=== PATIENT | female | born 1995 | race Caucasian/White ===

== ENCOUNTER 2021-03-31 09:19 | Inpatient (IN) | payer MEDICAID, OTHER ==
[~2021-03-31] VITALS: Ht 167.6 cm; Wt 81.6 kg
[2021-03-31] MEDS ORDERED: BACITRACIN ZINC OINT UDPKT TOP ONE (11:15)
[2021-03-31] MEDS ORDERED: LIDOCAINE HCL/PF 1% 10 MG/ML 5ML VIAL INFIL ONE (11:15)
[2021-03-31] MEDS ORDERED: KETOROLAC 15MG/ML VIAL IV ONE (11:15)
[2021-03-31] MEDS ORDERED: SODIUM CHLORIDE 0.9% 1000ML BAG (SEPSIS BOLUS) IV ONE (11:15)
[2021-03-31] MEDS ORDERED: VANCOMYCIN 1 G PREMIX 200 ML IV ONE (11:15)
[2021-03-31] MEDS ORDERED: PIPERACILLIN/TAZ 3.375G PREMIX 50 ML IV ONE (11:15)
[2021-03-31] MEDS ORDERED: LIDOCAINE HCL/EPINEPHRINE 1%-EPI 1:100,000 20 ML VIAL INFIL ONE (11:15)
[2021-03-31 12:02] LABS: CHLORIDE 105 mEq/L (98-107)
[2021-03-31 12:12] LABS: HCG SCREEN NEGATIVE
[2021-03-31 12:13] LABS: HEMATOCRIT. 42.6 % (36.0-48.0); HEMOGLOBIN. 14.1 g/dL (12.0-16.0); MEAN CORPUSCULAR HEMOGLOBIN 29.6 pg (28.0-32.0); MEAN CORPUSCULAR VOLUME 89.6 fL (81.0-99.0); MEAN PLATELET VOLUME 8.8 fl (7.4-10.4); PLATELET 364 x1000/uL (130-400); RED BLOOD CELL COUNT 4.76 mill/uL (4.2-5.4)
[2021-03-31] MEDS ORDERED: MORPHINE SULFATE 4 MG/ML CPJ (NOT FOR IM USE) IV STA (12:35)
[2021-03-31] MEDS ORDERED: ONDANSETRON HCL 4MG/2ML INJ IV STA (12:35)
[2021-03-31 13:00] LABS: CLARITY URINE TURBID (CLEAR); KETONES URINE 1+ (NEGATIVE); LEUKOCYTE ESTERASE URINE 2+ (NEGATIVE); NITRITE URINE POSITIVE (NEGATIVE); OCCULT BLOOD URINE NEGATIVE (NEGATIVE); PH URINE 5.5 (4.5-8.0); PROTEIN URINE 2+ (NEGATIVE); SPECIFIC GRAVITY URINE 1.035 (1.005-1.030)
[2021-03-31 13:03] LABS: COLOR URINE DARK YELLOW (YELLOW)
[2021-03-31 13:28] LABS: PLATELET ESTIMATE NORMAL
[2021-03-31] MEDS ORDERED: IOHEXOL-300 100 ML BOTTLE ONE (14:31)
[2021-03-31] MEDS ORDERED: DIPHENHYDRAMINE 50MG/ML VIAL IV PRN (16:30)
[2021-03-31] MEDS ORDERED: PIPERACILLIN/TAZOBACTAM 3.375 G in DEXTROSE 5% WATER 50 ML IV SCH (16:30)
[2021-03-31] MEDS ORDERED: IPRATROPIUM/ALBUTEROL 0.5-3(2.5)MG/3ML NEB HHN PRN (16:30)
[2021-03-31] MEDS ORDERED: CLONIDINE 0.1MG TABLET PO PRN (16:30)
[2021-03-31] MEDS ORDERED: NALOXONE HCL 0.4MG/ML VIAL IV PRN (16:45)
[2021-03-31] MEDS ORDERED: POTASSIUM CHLORIDE INJ 40 MEQ in DEXT 5% WATER 500 ML IV NR (18:30)
[2021-03-31] MEDS: MORPHINE SULFATE 2 MG/ML CPJ (NOT FOR IM USE) IV PRN ×2 (19:05→23:11)
[2021-03-31 21:00] VITALS: BP_SYST 111; BP_DIAS 44; BP_DIAS 48
[2021-03-31] MEDS: VANCOMYCIN 750 MG PREMIX 150 ML IV SCH (21:54)
[2021-03-31] MEDS: PIPERACILLIN/TAZOBACTAM 3.375G in DEXT 5% WATER 50ML IV SCH (21:54)
[2021-03-31] MEDS: ACETAMINOPHEN 325MG TABLET PO PRN (21:54)
[2021-03-31] MEDS: SODIUM CHLORIDE 0.9% 1,000 ML IV SCH (21:55)
[2021-04-01] VITALS: BP 102/46
[2021-04-01] MEDS: ACETAMINOPHEN 325MG TABLET PO PRN ×2 (02:01→14:33)
[2021-04-01 04:00] VITALS: BP 100/47
[2021-04-01] MEDS: SODIUM CHLORIDE 0.9% 1,000 ML IV SCH ×2 (05:00→18:23)
[2021-04-01] MEDS: MORPHINE SULFATE 2 MG/ML CPJ (NOT FOR IM USE) IV PRN ×4 (05:26→23:07)
[2021-04-01] MEDS: PIPERACILLIN/TAZOBACTAM 3.375G in DEXT 5% WATER 50ML IV SCH ×3 (05:42→21:14)
[2021-04-01] MEDS: VANCOMYCIN 750 MG PREMIX 150 ML IV SCH ×3 (05:42→21:14)
[2021-04-01 06:45] LABS: HEMATOCRIT. 33.5 % (36.0-48.0); HEMOGLOBIN. 11.4 g/dL (12.0-16.0); MEAN CORPUSCULAR HEMOGLOBIN 30.5 pg (28.0-32.0); MEAN CORPUSCULAR VOLUME 89.3 fL (81.0-99.0); MEAN PLATELET VOLUME 8.5 fl (7.4-10.4); PLATELET 303 x1000/uL (130-400); RED BLOOD CELL COUNT 3.75 mill/uL (4.2-5.4); RED CELL DISTRIBUTION WIDTH 13.9 % (11.6-14.6)
[2021-04-01 06:56] LABS: CHLORIDE 109 mEq/L (98-107)
[2021-04-01 07:03] LABS: LDL CHOLESTEROL 34 mg/dL (5-100)
[2021-04-01 07:04] LABS: HDL CHOLESTEROL 16 mg/dL (40-59)
[2021-04-01 08:00] VITALS: BP 112/57
[2021-04-01] MEDS ORDERED: POTASSIUM CHLORIDE INJ 40 MEQ in DEXT 5% WATER 250 ML IV SCH (11:00)
[2021-04-01 12:00] VITALS: BP 115/61
[2021-04-01 16:00] VITALS: BP 109/58
[2021-04-01 19:06] LABS: PLATELET ESTIMATE NORMAL
[2021-04-01 20:00] VITALS: BP 120/64
[2021-04-02] VITALS: BP 146/74
[2021-04-02] MEDS: ACETAMINOPHEN 325MG TABLET PO PRN ×2 (01:51→17:01)
[2021-04-02 04:00] VITALS: BP 120/76
[2021-04-02] MEDS: PIPERACILLIN/TAZOBACTAM 3.375G in DEXT 5% WATER 50ML IV SCH ×3 (05:27→21:17)
[2021-04-02] MEDS: VANCOMYCIN 750 MG PREMIX 150 ML IV SCH ×2 (05:27→13:07)
[2021-04-02] MEDS: MORPHINE SULFATE 2 MG/ML CPJ (NOT FOR IM USE) IV PRN ×3 (05:28→21:18)
[2021-04-02] MEDS: SODIUM CHLORIDE 0.9% 1,000 ML IV SCH ×2 (06:00→18:30)
[2021-04-02 06:57] LABS: BASOPHILS % 0.2 % (0.0-2.0); EOSINOPHILS % 1.1 % (0.0-5.0); HEMATOCRIT. 29.6 % (36.0-48.0); LYMPHOCYTES % 7.4 % (20.0-50.0); MEAN CORPUSCULAR HEMOGLOBIN 30.7 pg (28.0-32.0); MEAN CORPUSCULAR VOLUME 90.6 fL (81.0-99.0); MEAN PLATELET VOLUME 8.4 fl (7.4-10.4); MONOCYTES % 6.7 % (2.0-8.0); NEUTROPHILS % 84.6 % (40.0-76.0); PLATELET 281 x1000/uL (130-400); RED BLOOD CELL COUNT 3.26 mill/uL (4.2-5.4); RED CELL DISTRIBUTION WIDTH 14.6 % (11.6-14.6)
[2021-04-02 08:00] VITALS: BP 129/77
[2021-04-02 12:00] VITALS: BP 121/75
[2021-04-02 12:50] LABS: CHLORIDE 108 mEq/L (98-107)
[2021-04-02 16:00] VITALS: BP 124/71
[2021-04-02] MEDS: VANCOMYCIN 1 G PREMIX 200 ML IV SCH (18:17)
[2021-04-02 20:00] VITALS: BP 124/80
[2021-04-03] VITALS: BP 133/71
[2021-04-03] MEDS: VANCOMYCIN 1 G PREMIX 200 ML IV SCH ×3 (02:23→17:00)
[2021-04-03] MEDS: ACETAMINOPHEN 325MG TABLET PO PRN ×2 (02:56→16:16)
[2021-04-03] MEDS: MORPHINE SULFATE 2 MG/ML CPJ (NOT FOR IM USE) IV PRN ×4 (02:58→23:16)
[2021-04-03 04:00] VITALS: BP 106/67
[2021-04-03] MEDS: PIPERACILLIN/TAZOBACTAM 3.375G in DEXT 5% WATER 50ML IV SCH ×3 (05:23→21:54)
[2021-04-03 08:00] VITALS: BP 124/87
[2021-04-03 11:20] LABS: CHLORIDE 110 mEq/L (98-107)
[2021-04-03] MEDS: ONDANSETRON HCL 4MG/2ML INJ IV PRN (11:21)
[2021-04-03 11:25] LABS: HEMOGLOBIN. 12.4 g/dL (12.0-16.0); MEAN CORPUSCULAR HEMOGLOBIN 30.5 pg (28.0-32.0); MEAN PLATELET VOLUME 7.8 fl (7.4-10.4); PLATELET 349 x1000/uL (130-400); RED BLOOD CELL COUNT 4.05 mill/uL (4.2-5.4); RED CELL DISTRIBUTION WIDTH 14.3 % (11.6-14.6)
[2021-04-03 12:00] VITALS: BP 113/76
[2021-04-03 16:00] VITALS: BP 129/80
[2021-04-03] MEDS: SODIUM CHLORIDE 0.9% 1,000 ML IV SCH ×2 (19:30→21:59)
[2021-04-03 20:00] VITALS: BP 132/81
[2021-04-03 22:57] LABS: PLATELET ESTIMATE NORMAL
[2021-04-04] VITALS: BP 122/91
[2021-04-04] MEDS: VANCOMYCIN 1 G PREMIX 200 ML IV SCH ×3 (02:58→18:29)
[2021-04-04] MEDS: ACETAMINOPHEN 325MG TABLET PO PRN (02:58)
[2021-04-04 04:00] VITALS: BP 126/74
[2021-04-04] MEDS: PIPERACILLIN/TAZOBACTAM 3.375G in DEXT 5% WATER 50ML IV SCH ×3 (06:57→20:59)
[2021-04-04 07:03] LABS: HEMATOCRIT. 38.7 % (36.0-48.0); HEMOGLOBIN. 13.2 g/dL (12.0-16.0); MEAN CORPUSCULAR HEMOGLOBIN 30.2 pg (28.0-32.0); MEAN CORPUSCULAR VOLUME 88.9 fL (81.0-99.0); MEAN PLATELET VOLUME 7.8 fl (7.4-10.4); PLATELET 436 x1000/uL (130-400); RED BLOOD CELL COUNT 4.36 mill/uL (4.2-5.4); RED CELL DISTRIBUTION WIDTH 14.6 % (11.6-14.6)
[2021-04-04 07:06] LABS: CHLORIDE 109 mEq/L (98-107)
[2021-04-04 08:00] VITALS: BP 111/56
[2021-04-04] MEDS: SODIUM CHLORIDE 0.9% 1,000 ML IV SCH ×2 (09:07→20:30)
[2021-04-04] MEDS: ONDANSETRON HCL 4MG/2ML INJ IV PRN ×2 (09:18→17:50)
[2021-04-04] MEDS: MORPHINE SULFATE 2 MG/ML CPJ (NOT FOR IM USE) IV PRN ×3 (09:28→22:27)
[2021-04-04 12:00] VITALS: BP 127/82
[2021-04-04 16:00] VITALS: BP 136/77
[2021-04-04 17:27] LABS: PLATELET ESTIMATE INCREASED
[2021-04-04 20:00] VITALS: BP 113/80
[2021-04-05] VITALS: BP 121/76
[2021-04-05] MEDS: VANCOMYCIN 1 G PREMIX 200 ML IV SCH ×2 (01:18→09:13)
[2021-04-05] MEDS: ACETAMINOPHEN 325MG TABLET PO PRN (01:22)
[2021-04-05 04:00] VITALS: BP 104/57
[2021-04-05] MEDS: PIPERACILLIN/TAZOBACTAM 3.375G in DEXT 5% WATER 50ML IV SCH ×2 (05:05→13:59)
[2021-04-05] MEDS: MORPHINE SULFATE 2 MG/ML CPJ (NOT FOR IM USE) IV PRN ×2 (05:15→10:08)
[2021-04-05 08:00] VITALS: BP 133/84
[2021-04-05] MEDS: SODIUM CHLORIDE 0.9% 1,000 ML IV SCH (09:15)
[2021-04-05] MEDS: ONDANSETRON HCL 4MG/2ML INJ IV PRN (10:08)
[2021-04-05 12:00] VITALS: BP 124/74
[2021-04-05] MEDS ORDERED: LEVO750T46 MT (13:13)
[2021-04-05] MEDS ORDERED: SULF1TAB48 MT (13:13)
[2021-04-05] MEDS ORDERED: ACET650T37 MT (13:13)
[2021-04-05 14:56] VITALS: BP 124/74
[2021-04-05 16:00] VITALS: BP 127/75
== END 2021-04-05 19:00 | disposition home health service (06) | DRG 720 ==
LOC: ER 09:19 → EDBEDREQ 14:34 → EDBEDREQTM 14:34 → ENRESERV 20:29 → 8WST 21:38
PROVIDERS: ADMIT Internal Medicine; ATTEND Internal Medicine
PROC: 0H98XZZ Drainage of Buttock Skin, External Approach (ICD-10-PCS; principal; 2021-03-31)
DX: A41.9 Sepsis, unspecified organism (principal); E43 Unspecified severe protein-calorie malnutrition; R65.20 Severe sepsis without septic shock; L02.31 Cutaneous abscess of buttock; L03.317 Cellulitis of buttock; L02.416 Cutaneous abscess of left lower limb; F17.200 Nicotine dependence, unspecified, uncomplicated; N39.0 Urinary tract infection, site not specified; E87.6 Hypokalemia; F15.90 Other stimulant use, unspecified, uncomplicated; Z20.822 Contact with and (suspected) exposure to COVID-19; Z79.899 Other long term (current) drug therapy; Z68.29 Body mass index [BMI] 29.0-29.9, adult; Z71.51 Drug abuse counseling and surveillance of drug abuser
CPT/HCPCS: 36415; 71045; 74177; 80048; 80053; 80061; 80202; 81003; 82962; 83605; 84145; 84443; 84703; 85025; 87426; 93970; 99291; C1893; J1885; J2270; J2405; J2543; J3370; J3480; J3490; J7030; J7040; J7060; Q9967